=== PATIENT | female | born 1975 | race Caucasian/White ===

== ENCOUNTER → 2017-09-25 | Outpatient (CLI) | payer MEDICARE, MEDICAID ==
[2017-09-25] VITALS (13 sets, daily range): BP systolic 72–117; BP diastolic 43–84
[~2017-09-25] MED LIST: CELEXA40 MG; ESTRADIOL 1 MG T1 M1 PO; IBUPROFEN 800800 M1; MS CONTIN15 MG PO; NEURONTIN600 MG PO; OXYCODONE HCL E10 MG PO; ZANAFLEX4 MG PO
--- NOTE | 2017-10-02 08:29 | CARD ---
[address] [address] CARDIAC CATH REPORT Name: CHATO MCCANN Room: [facility]#: [id number] Admission: 09/25/17 Attend Phys: Jazlyn Velasquez Discharge: Date of : 73 Report #: [id number] THIS REPORT FOR: //name// CC: ADRIANA physician/PCP Jazlyn Velasquez NP DATE OF SERVICE: 09/25/2017 REFERRING PROVIDER: Jalzyn Velasquez NP PROCEDURE: Tilt table test. INDICATION: Syncope. PROCEDURE DESCRIPTION: After informed consent was obtained, the patient was brought to the cardiac holding area. Initial vital signs were obtained. The patient was placed on the tilt table and secured with the designated straps. The tilt table was positioned to a 70-degree head upright position. Blood pressure and heart rate were monitored every 2 minutes for 20 minutes. At the end of this phase, the patient was given 0.4 mg of sublingual nitroglycerin. Blood pressures were again monitored every 2 minutes. The patient did have hypotension resulting in syncope leading to termination of the tilt-table test. FINDINGS: The patient's baseline blood pressure was 108/65 with a pulse rate of 52 beats per minute. Upon standing, the patient's blood pressure was 94/65 with a pulse rate of 70 beats per minute. The patient's blood pressure and pulse rate remained stable for the initial 20-minute head upright tilt. At the end of the first 20-minute phase, her blood pressure was 110/80 with a pulse rate of 79 beats per minute. The patient was given 0.4 mg of sublingual nitroglycerin. At this point in time, she was noted to have a decline in blood pressure. Ultimately, her blood pressure fell to 72/43 mmHg at which time she had syncope. At that time, her heart rate was 103 beats per minute. The patient was placed back in the supine position and recovered, stable vital signs promptly. At completion of the tilt table test, the blood pressure was 105/79 with a pulse rate of 65 beats per minute. IMPRESSION: Typical orthostasis in response to tilt table testing. There was no evidence of cardiogenic syncope. RECOMMENDATIONS: 1. The patient is to stay adequately hydrated. [place] [address] CARDIAC CATH REPORT Name: RAMYCHATO Elsy Room: [facility]#: [id number] Admission: 09/25/17 Attend Phys: Jazlyn Velasquez Discharge: Date of : 73 Report #: [id number] Encouraged increased salt intake. 2. Follow up with primary care provider. <ELECTRONICALLY SIGNED> By: Adiel Khan MD, [facility] 10/02/17 [id number] Khan MD, FACC /nt
== END | disposition home or self-care (01) ==
LOC: M.CL 09:06
DX: R55 Syncope and collapse (principal); Z98.890 Other specified postprocedural states; Z79.899 Other long term (current) drug therapy